=== PATIENT | male | born 1990 | race Caucasian/White ===

== ENCOUNTER 2017-03-21 11:19 | Outpatient (CLI) | payer BC | END 2017-03-21 11:20 | DX: I10 Essential (primary) hypertension (principal); Z51.81 Encounter for therapeutic drug level monitoring; Z13.89 Encounter for screening for other disorder ==

== ENCOUNTER 2017-11-06 11:01 | Outpatient (CLI) | payer BC | END 2017-11-06 11:02 | disposition home or self-care (01) | LOC: DI 11:01 | PROVIDERS: ATTEND Physician Assistant Medical | DX: I10 Essential (primary) hypertension (principal); I51.7 Cardiomegaly | CPT/HCPCS: 93306 ==

== ENCOUNTER 2017-12-01 08:00 | Outpatient (CLI) | payer BC ==
[2017-12-01 12:30] LABS: BASOPHILS % (AUTO) 0.4 %; EOSINOPHILS # (AUTO) 0.2 10^3/uL (0.0-0.7); EOSINOPHILS % (AUTO) 3.9 %; HGB - HEMOGLOBIN 15.7 g/dL (14.0-18.0); LYMPHOCYTES # (AUTO) 1.9 10^3/uL (1.5-3.5); LYMPHOCYTES % (AUTO) 37.3 %; MEAN CORPUSCULAR HEMOGLOBIN 30.7 pg (27.0-31.0); MEAN CORPUSCULAR HGB CONC 34.1 g/dL (32.0-36.0); MEAN CORPUSCULAR VOLUME 89.9 fL (80.0-94.0); MEAN PLATELET VOLUME 8.7 fL (7.4-11.4); MONOCYTES # (AUTO) 0.6 10^3/uL (0.0-1.0); MONOCYTES % (AUTO) 11.1 %; NEUTROPHILS # (AUTO) 2.4 10^3/uL (1.5-6.6); NEUTROPHILS % (AUTO) 47.3 %; PLT - PLATELET COUNT 232 10^3/uL (130-450); RED CELL DISTRIBUTION WIDTH 12.9 % (12.0-15.0); WHITE BLOOD COUNT 5.2 x10^3/uL (4.8-10.8)
[2017-12-01 12:48] LABS: ALBUMIN 4.6 g/dL (3.2-5.5); ALBUMIN/GLOBULIN RATIO 1.5 (1.0-2.2); BILIRUBIN,TOTAL 0.7 mg/dL (0.2-1.0); CALCIUM 9.2 mg/dL (8.5-10.3); CREATININE 0.9 mg/dL (0.6-1.2); TOTAL PROTEIN 7.6 g/dL (6.7-8.2)
== END 2017-12-01 08:01 | disposition home or self-care (01) ==
LOC: LAB.WCP 08:00
PROVIDERS: ATTEND Physician Assistant Medical
DX: Z51.81 Encounter for therapeutic drug level monitoring (principal); D72.819 Decreased white blood cell count, unspecified
CPT/HCPCS: 36415; 80053; 85025

== ENCOUNTER 2017-12-28 11:06 | Outpatient (CLI) | payer BC ==
[2017-12-28 19:39] LABS: % IRON SATURATION 36 % (20-50); ALBUMIN 4.8 g/dL (3.2-5.5); ALKALINE PHOSPHATASE 52 IU/L (42-121); ALT ALANINE AMINOTRANSFERASE 94 IU/L (10-60); AST ASPARTATE AMINOTRANSFERASE 45 IU/L (10-42); BILIRUBIN,TOTAL 0.7 mg/dL (0.2-1.0); CHOL/HDL RATIO 5.5 (<5.0); CHOLESTEROL 192 mg/dL; HDL CHOLESTEROL 35 mg/dL; IRON 121 ug/dL (45-182); LDL CHOLESTEROL,CALCULATED 130 mg/dL; LDL/HDL RATIO 3.7 (<3.6); TOTAL IRON BINDING CAPACITY 335 ug/dL (250-450); TOTAL PROTEIN 7.7 g/dL (6.7-8.2); TRANSFERRIN 239 mg/dL (180-329); VLDL CHOLESTEROL 27 mg/dL
[2017-12-28 19:40] LABS: BILIRUBIN,DIRECT < 0.1 mg/dL (0.1-0.5)
[2017-12-29 08:47] LABS: HEPATITIS B SURFACE ANTIGEN NON-REACTIVE (NON-REACTIVE); HEPATITIS C ANTIBODY NON-REACTIVE (NON-REACTIVE)
== END 2017-12-28 11:07 | disposition home or self-care (01) ==
LOC: LAB.WCP 11:06
PROVIDERS: ATTEND Physician Assistant Medical
DX: R74.8 Abnormal levels of other serum enzymes (principal); E78.5 Hyperlipidemia, unspecified
CPT/HCPCS: 36415; 80061; 80076; 83540; 83721; 84466; 86317; 86704; 86803; 87340

== ENCOUNTER 2018-01-08 10:41 | Outpatient (CLI) | payer BC | END 2018-01-08 10:42 | disposition home or self-care (01) | LOC: SC 10:41 | PROVIDERS: ATTEND Internal Medicine Pulmonary Disease | DX: G47.10 Hypersomnia, unspecified (principal); G47.8 Other sleep disorders; R06.83 Snoring | CPT/HCPCS: 99203; 99212 ==

== ENCOUNTER 2018-03-12 20:41 | Outpatient (CLI) | payer BC ==
--- NOTE | 2018-03-13 10:10 | Ultrasound Report ---
RIGHT UPPER QUADRANT ULTRASOUND: 03/12/2018 CLINICAL INDICATION: Abnormal LFTs. TECHNIQUE: Real-time scanning was performed with novelties sales representative static images obtained. FINDINGS: The liver measures 17.5 cm. Hepatic echogenicity is increased, compatible with fatty infiltration. No focal parenchymal lesion or intrahepatic biliary dilatation is seen. The common bile duct measures 3 mm. The gallbladder is normal. The right kidney measures 12.2 cm, and demonstrates no hydronephrosis. No free fluid is present. IMPRESSION: ECHOGENIC LIVER, COMPATIBLE WITH FATTY INFILTRATION. NO EVIDENCE OF CHOLELITHIASIS OR BILIARY OBSTRUCTION. TD: 03/13/2018 10:09
== END 2018-03-12 20:42 | disposition home or self-care (01) ==
LOC: DI 20:41
PROVIDERS: ATTEND Family Medicine
DX: K76.0 Fatty (change of) liver, not elsewhere classified (principal); R74.8 Abnormal levels of other serum enzymes
CPT/HCPCS: 76705

== ENCOUNTER 2018-05-21 19:21 | Outpatient (CLI) | payer BC | END 2018-05-21 19:22 | disposition home or self-care (01) | LOC: SC 19:21 | PROVIDERS: ATTEND Internal Medicine Pulmonary Disease | DX: G47.10 Hypersomnia, unspecified (principal); R06.83 Snoring | CPT/HCPCS: 95810 ==

== ENCOUNTER 2018-06-19 14:12 | Outpatient (CLI) | payer BC | END 2018-06-19 14:13 | disposition home or self-care (01) | LOC: SC 14:12 | PROVIDERS: ATTEND Nurse Practitioner Family | DX: R06.83 Snoring (principal); R53.83 Other fatigue | CPT/HCPCS: 99212; 99214 ==